=== PATIENT | male | born 1945 | race Caucasian/White ===

== ENCOUNTER 2017-04-05 22:22 | Emergency (ER) | payer BC, MEDICARE, OTHER ==
[2017-04-05] MEDS ORDERED: cefTRIAXone 1,000 MG in Sodium Chloride 0.9% 50 ML IV ONE (23:27)
[2017-04-05] MEDS ORDERED: Acetaminophen 325 MG Tab PO ONE (23:33)
[2017-04-05] MEDS ORDERED: Sodium Chloride 0.9% 1,000 ML IV SCH (23:45)
[2017-04-06] MEDS ORDERED: Vancomycin 1,000 MG SDV ONE (00:09)
--- NOTE | 2017-04-06 04:26 | ER ---
DATE SEEN: 04/05/2017 CHIEF COMPLAINT: Fever. HISTORY OF PRESENT ILLNESS: This is a 71-year-old male complaining of fever and chills, rigors, started this morning. Recently hospitalized for lumbar surgery at the middle of March and discharged home and was treated for hospital- acquired pneumonia at the same time. Today, he fainted twice while trying to go to the bathroom. He denies nausea or vomiting. He complains of a headache and also low back pain around the incision site. MEDICATIONS: Reviewed. ALLERGIES: Reviewed. PAST MEDICAL HISTORY: Bradycardia status post ICD pacemaker placement. PHYSICAL EXAMINATION: GENERAL: Non-toxic. VITAL SIGNS: Temperature 100.8, pulse is 93, blood pressure is normal. ENT: Negative. NECK: Supple. CHEST: Clear. EXTREMITIES: No edema. MENTAL STATUS: Alert. LOWER BACK: The incision appeared clean with no signs of infection. Slightly tender to palpation. LABORATORY DATA: His labs showed a white cell count of 19,000. IMAGING DATA: Chest x-ray confirmed an infiltrate on the right side. IMPRESSION: 1. Fever and rigors. 2. Postop pain. 3. Bradycardia. 4. Syncope. PLAN: Due to the infiltrate, that seems to be comparable to the one that he had at the hospital. I treated him empirically with vancomycin and ceftriaxone. I started IV fluids and we will send the patient to [facility] for admission. TIME SEEN: 2315 hours. /[id number] HANS/DARREL
--- NOTE | 2017-04-06 16:33 | CR ---
INDICATION: Fever, shakes, and sweating. CHEST: PA and lateral views of the chest 04/05/2017 were obtained. No comparisons. Prominent AP diameter, hyperaeration, and flattened diaphragm leaves suggest COPD. No consolidating pneumonia or effusion could be identified. The heart is normal in size and shape with bipolar pacemaker leads in place. The ventricular lead tip is in the area of the apex of the right ventricle. The aorta is tortuous and calcified in the arch and descending portion. Bridging hyperostotic changes are noted in the mid to lower thoracic spine with a mild dextroconvex scoliosis of the upper middle thoracic spine. Posteriorly, there is noted a mid-thoracic neurostimulatory. IMPRESSION: No acute process - multiple findings as noted above. MTDD
== END 2017-04-06 01:10 ==
LOC: FB.ED 22:22
DX: G89.18 Other acute postprocedural pain (principal); M54.5 Low back pain; R55 Syncope and collapse; R00.1 Bradycardia, unspecified; R50.9 Fever, unspecified; Z95.0 Presence of cardiac pacemaker; Z98.890 Other specified postprocedural states
CPT/HCPCS: 36415; 71046; 80053; 83880; 85025; 87040; 87804; 96365; 96367; 99285; A9270; J0696; J3370; J7040; J7050; 99284; J7030